=== PATIENT | male | born 1940 | race Caucasian/White ===

== ENCOUNTER 2019-04-09 00:43 | Emergency (ER) | payer MEDICARE, SELFPAY ==
[2019-04-09 00:44] VITALS: BP 166/68; PULSE 62; RESP 18; TEMP 36.9; O2SAT 96; BMI 28.3
--- NOTE | 2019-04-09 01:35 | ED.DCSUM_ITS ---
History of Present Illness Chief Complaint: Abd Pain Narrative: Patient is a 79-year-old male who presents with abdominal pain. 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 He does not have a history of spontaneous bacterial peritonitis. He has required paracentesis on one previous occasion. Tonight after eating pizza around 8 PM he developed right upper quadrant abdominal pain with radiation through to the back. He does have a history of cholelithiasis as well. He denies any fever nausea or vomiting. 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 Denies: Nausea, Vomiting Neurological: Denies: Headache Physical Exam Vital Signs/Narrative: Vital Signs Temp Pulse Resp BP Pulse Ox 04/09/19 00:44 98.4 F 62 18 166/68 H 96 General: Well nourished Head: Normocephalic Eyes: EOMI ENT: Moist mucous membranes Neck: Supple Cardiovascular: Regular rate Respiratory: No distress Abdomen: Soft, Tender, - - Right upper quadrant abdominal tenderness. Negative for: Guarding, Rebound tenderness, Camarillo's sign Skin: Normal color Neurological: Alert Psychological: Normal affect Diagnostic/Tx/Re-eval Impressions Abdomen Ultrasound 04/09/19 01:35 IMPRESSION: Mild gallbladder wall thickening. Limited evaluation of the gallbladder. Common duct and pancreas not visualized due to overlying bowel gas. Electronically Signed: Umair Hinojosa MD at 3:34 EDT , Service support , 04/09/19 01:35 Abdomen Limited [US] Stat Laboratory Results 04/09/19 04/09/19 01:45 01:45 WBC 3.4 L RBC 3.27 L Hgb 12.7 L Hct 35.8 L MCV 109.5 H MCH 38.8 H MCHC 35.5 RDW Std Deviation 58.4 H RDW Coeff of Marii 14.3 Plt Count 47 L* MPV 12.4 H Immature Gran % (Auto) 0.300 Neut % (Auto) 57.5 Lymph % (Auto) 27.5 Kingfisher % (Auto) 9.9 Eos % (Auto) 4.5 Baso % (Auto) 0.3 Absolute Neuts (auto) 1.9 L Absolute Lymphs (auto) 0.92 Nucleated RBC % 0 Diff Path Review May foll Platelet Estimate MKD DEC RBC Morphology N CHROM Macrocytosis 2+ Sodium 141 Potassium 4.1 Chloride 109 H Carbon Dioxide 26.0 Anion Gap 6 BUN 16 Creatinine 1.09 Estim Creat Clear Calc 47.80 Est GFR (MDRD) Af Amer 84 Est GFR (MDRD) Non-Af 69 BUN/Creatinine Ratio 14.7 Glucose 268 H Calcium 8.4 L Total Bilirubin 2.20 H AST 56 H ALT 45 Alkaline Phosphatase 144 H Total Protein 6.6 Albumin 2.7 L Globulin 3.9 Albumin/Globulin Ratio 0.7 L Lipase 204 - Medical Decision Making Work-up as above. Patient has mild gallbladder wall thickening but does not have any other evidence of acute cholecystitis. He has no leukocytosis, fever, nausea or vomiting. There is no pericholecystic fluid. His liver function tests are near baseline. On reevaluation his symptoms have resolved. I discussed with him the possibility of chronic cholecystitis. I recommended that he follow-up as an outpatient for further work-up such as possible HIDA scan. I discussed referring him to surgery. Patient states no offense but if I need anything else done I will follow-up with [facility]. He does have upcoming appointments with his primary care physician and physicians up at [facility]. I advised he discuss his symptoms with them and further work-up with them. He does understand to return for new or worsening symptoms and was instructed on specific signs and symptoms to return or seek immediate evaluation for. His symptoms have resolved on reevaluation and he has no complaints at this time. ED Disposition - Plan for ED Patient: Disposition: Home or Assisted Living Diagnosis: RUQ abdominal pain Instructions: ABDOMINAL PAIN, Unkown Cause, (Male) Referrals: Von Batista, [Primary Care Provider] -
--- NOTE | 2019-04-09 01:35 | US_ITS ---
STUDY: ABDOMINAL ULTRASOUND - RIGHT UPPER QUADRANT REASON FOR VISIT: Male, 79 years old. Abdominal pain. TECHNIQUE: Ultrasound evaluation of the right upper quadrant was performed with real-time and static williamson-scale imaging. TECHNICAL QUALITY: Adequate. COMPARISON: November 17, 2016 and July 02, 2015. FINDINGS: Liver: The liver measures 12.8 cm. There is a heterogeneous echogenicity of the liver. The bile ducts are within normal limits. There is hepatic color flow. The direction of portal flow is hepatopetal. There is no demonstrated mass lesion. Gallbladder: Normal distended gallbladder. The gallbladder wall measures 4 mm. There is a negative sonographic Camarillo's sign. There is no pericholecystic fluid. There are no gallstones. Limited evaluation of gallbladder due to overlying bowel gas. On images provided aside from mild gallbladder wall thickening, the gallbladder is grossly normal. Common Bile Duct (C.B.D.): Not visualized. Pancreas: Not visualized. Right Kidney: Normal size of the right kidney. The right kidney measures 10.2 cm. Normal renal cortex. The right cortex measures 1.3 cm. There is no demonstrated renal mass or cyst. There is no right hydronephrosis. US/Abdomen Limited IMPRESSION: Mild gallbladder wall thickening. Limited evaluation of the gallbladder. Common duct and pancreas not visualized due to overlying bowel gas. Electronically Signed: Umair Hinojosa MD at 3:34 EDT , Service support ,
[2019-04-09 02:01] LABS: Absolute Lymphocyte Count 0.92 X10^3/uL (0.83-4.51); Absolute Neutrophil Count 1.9 X10^3/uL (2.0-7.7); Basophil# 0.01 X10^3/uL; Basophil% 0.3 % (0-1); Eosinophil# 0.15 X10^3/uL; Eosinophils% 4.5 % (0-5); Hematocrit 35.8 % (40-54); Hemoglobin 12.7 g/dL (13.0-16.5); Lymphocyte # 0.92 X10^3/ul (4.0); Lymphocyte % 27.5 % (19-41); Mean Corp Hgb Conc 35.5 g/dL (32-36); Mean Corpuscular Hgb 38.8 pg (27.0-32.0); Mean Corpuscular Volume 109.5 fL (80-94); Mean Platelet Vol. 12.4 fl (6.2-12.0); Monocyte# 0.33 X10^3/uL; Monocyte% 9.9 % (0-10); NRBC Flagged by Analyzer 0 % (0-5); Neutrophil # 1.93 X10^3/uL (2.7-7.7); Neutrophil % 57.5 % (47-70); POSITIVE COUNT YES; RBC Distribution Width CV 14.3 % (11.6-14.6); RBC Distribution Width SD 58.4 fl (35.1-43.9); Red Blood Count 3.27 M/mm3 (4.6-6.2); White Blood Count 3.4 K/mm3 (4.4-11.0)
[2019-04-09 02:05] LABS: Platelet Count 47 K/mm3 (150-450)
[2019-04-09 02:06] LABS: Differential Indicated SCAN CRITERIA MET
--- NOTE | 2019-04-09 02:10 | ED.RN ---
DR MATHEW NOTIFIED OF PLT RESULTS
[2019-04-09 02:57] LABS: Macrocytosis 2+; Platelet Estimate MKD DEC (ADEQ)
[2019-04-09 02:58] LABS: Red Cell Morphology N CHROM NORMAL (NORM C&C)
[2019-04-09 03:03] LABS: ALB/GLOB Ratio 0.7 RATIO (0.9-2.4); AST(SGOT) 56 U/L (15-37); Alanine Aminotransfer ALT/SGPT 45 U/L (16-61); Albumin, Serum 2.7 g/dL (3.2-5.0); Alkaline Phosphatase 144 U/L (45-117); Anion Gap 6 (5-15); BUN 16 mg/dL (7-18); BUN/Creat Ratio 14.7 RATIO (10-20); Calcium,Total 8.4 mg/dL (8.5-10.1); Chloride 109 mmol/L (98-107); Creatinine, Serum 1.09 mg/dL (0.70-1.30); EST Glomerular Filtration Rate 69 mL/min (>60); Est Glom Filt Rate - Afr Amer 84 mL/min (>60); Globulin 3.9 g/dL (2.2-4.2); Glucose 268 mg/dL (74-106); Lipase 204 U/L (73-393); Potassium 4.1 mmol/L (3.5-5.1); Protein, Total 6.6 g/dL (6.4-8.2); Sodium Level 141 mmol/L (136-145)
[2019-04-09 03:39] VITALS: BP 132/69; PULSE 60; RESP 12; O2SAT 97
[2019-04-11 08:24] LABS: Pathologist Review Reviewed
== END 2019-04-09 04:06 | disposition home or self-care (01) ==
PROVIDERS: Emergency Provider Emergency Medicine; Family Provider Student in an Organized Health Care Education/Training Program; PCP Student in an Organized Health Care Education/Training Program
DX: R10.11 Right upper quadrant pain (principal); K74.60 Unspecified cirrhosis of liver; Z79.899 Other long term (current) drug therapy; Z87.891 Personal history of nicotine dependence
CPT/HCPCS: 76705; 80053; 83690; 85025; 99283; A4216

== ENCOUNTER 2019-07-09 18:05 | Emergency (ER) | payer MEDICARE, SELFPAY ==
[2019-07-09 18:05] VITALS: BP 148/68; PULSE 60; RESP 16; TEMP 36.6; O2SAT 97; BMI 29.0
--- NOTE | 2019-07-09 18:42 | CT_ITS ---
STUDY: CT CHEST WITHOUT CONTRAST REASON FOR EXAM: Male, 79 years old. TRIPPED AND FELL HIT RIGHT SIDE CHEST RADIATION DOSAGE (If Supplied By Facility): CTDIvol = ( 18.33 ) mGy, DLP = ( 719.34 ) mGycm TECHNIQUE: Transaxial imaging was performed without the administration of intravenous contrast material. Individualized dose optimization techniques were used for this CT. COMPARISON: Abdominal ultrasound dated April 09, 2019 FINDINGS: The lungs are normal. No visualized consolidation or pleural effusion or pulmonary edema. No lung nodules. Some occasional interstitial thickening is seen in both lungs. Several small calcified right hilar lymph nodes are present. Normal heart size and pericardium. Normal mediastinum. Normal hilar regions. Normal unenhanced pulmonary arteries. There is atherosclerotic calcification of the aortic arch with tortuosity and elongation of the aortic arch and descending thoracic aorta. There are multi-level degenerative changes of the thoracic spine. No visualized acute rib fractures. There are numerous chronic appearing abnormalities of the visualized upper abdomen including splenic and liver calcifications, cirrhotic appearing liver, portal vein hypertension and multiple venous varices. CT/Chest without Contrast IMPRESSION: 1. No demonstrated acute or significant process of the chest on this exam. Electronically Signed: Wei Watkins MD at 19:33 EST , Service support ,
[2019-07-09] MEDS: Lidocaine 5% Patch 1 PATCH TOPICAL (19:17)
[2019-07-09 19:18] LABS: Absolute Lymphocyte Count 0.94 X10^3/uL (0.83-4.51); Absolute Neutrophil Count 2.2 X10^3/uL (2.0-7.7); Basophil# 0.01 X10^3/uL; Basophil% 0.3 % (0-1); Eosinophil# 0.13 X10^3/uL; Eosinophils% 3.7 % (0-5); Hemoglobin 12.7 g/dL (13.0-16.5); Lymphocyte # 0.94 X10^3/ul (4.0); Lymphocyte % 26.8 % (19-41); Mean Corp Hgb Conc 35.3 g/dL (32-36); Mean Corpuscular Hgb 38.5 pg (27.0-32.0); Mean Corpuscular Volume 109.1 fL (80-94); Mean Platelet Vol. 11.1 fl (6.2-12.0); Monocyte# 0.26 X10^3/uL; Monocyte% 7.4 % (0-10); NRBC Flagged by Analyzer 0 % (0-5); Neutrophil # 2.16 X10^3/uL (2.7-7.7); Neutrophil % 61.5 % (47-70); POSITIVE COUNT YES; RBC Distribution Width SD 56.6 fl (35.1-43.9); White Blood Count 3.5 K/mm3 (4.4-11.0)
[2019-07-09 19:19] LABS: Anion Gap 6 (5-15); BUN 17 mg/dL (7-18); BUN/Creat Ratio 14.9 RATIO (10-20); Calcium,Total 8.1 mg/dL (8.5-10.1); Chloride 109 mmol/L (98-107); Creatinine, Serum 1.14 mg/dL (0.70-1.30); EST Glomerular Filtration Rate 66 mL/min (>60); Est Glom Filt Rate - Afr Amer 80 mL/min (>60); Estimated Creatinine Clearance 45.71 ml/min; Glucose 251 mg/dL (74-106); Potassium 4.2 mmol/L (3.5-5.1); Sodium Level 142 mmol/L (136-145)
[2019-07-09 19:20] LABS: Platelet Count 63 K/mm3 (150-450)
[2019-07-09 19:21] LABS: Differential Indicated SCAN CRITERIA MET
[2019-07-09 19:35] LABS: International Normalized Ratio 1.6; Prothrombin Time (Protime)PT. 18.7 SECONDS (11.7-14.9)
[2019-07-09 19:36] LABS: Partial Thromboplast Time 35.7 Seconds (24.1-36.2)
[2019-07-09 19:56] LABS: Macrocytosis 1+; Platelet Estimate MOD DEC (ADEQ)
--- NOTE | 2019-07-09 20:04 | ED.VIS.FALL ---
History of Present Illness Chief Complaint: Fall Narrative: Patient presenting for evaluation secondary to a fall. Patient suffered a mechanical fall just prior to arrival. He reports that he tripped and landed on the right side of his chest on the edge of the sidewalk on the concrete. Patient states that he has a moderate to severe amount of right anterior chest pain. He denies hitting his head or loss of consciousness. Patient states that the pain in his chest is worse with palpation movement or taking deep breath. 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 He obviously is not on any sort of anticoagulants. He is denying any other injuries at this time. 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, tonsils removed Smoking Status: Former smoker - Family History Maternal Family History: Reports: No pertinent history Paternal Family History: Reports: No pertinent history Review of Systems All systems negative except as indicated General: Denies: Chills, Fever, Sweats Eyes: Denies: Visual changes - bilaterally, Diplopia ENT: Denies: Rhinorrhea, Sore throat Cardiovascular: Reports: Chest pain Respiratory: Denies: Dyspnea, Cough, Dyspnea on exertion Gastrointestinal: Denies: Abdominal pain, Nausea, Vomiting, Diarrhea, Melena, Hematochezia Genitourinary: Denies: Dysuria, Hematuria, Frequency Musculoskeletal: Denies: Back pain, Extremity Pain Skin: Denies: Rash, Wounds Neurological: Denies: Headache, Weakness, Numbness Psych: Denies: Anxiety Endocrine: Denies: Polyuria, Polydipsia Hematologic: Reports: Easy bruising, Easy bleeding Physical Exam Vital Signs/Narrative: Vital Signs Temp Pulse Resp BP Pulse Ox 07/09/19 18:05 98 F 60 16 148/68 H 97 Inital Vital Signs reviewed: Yes General: Well nourished, Well developed, - - Airway is patent, breath sounds equal bilateral, central peripheral pulses 2+ and symmetric. GCS 15 out of 15 Head: Normocephalic, Atraumatic Eyes: Perrl, EOMI ENT: No trauma Neck: Nontender, Full ROM. Negative for: Spinal Tenderness Cardiovascular: Regular rate, Regular rhythm, No murmurs Respiratory: No distress, CTA bilaterally, Chest tenderness - Right anterior just below the nipple line with a minimal amount of ecchymosis. No evidence of flail chest, step-offs, or subcutaneous emphysema. Abdomen: Soft, Nontender, Nondistended, Normal bowel sounds Back: Nontender Extremeties: Atraumatic Skin: Normal color, No rash Neurological: Alert, Oriented x3, Cranial nerves II-XII grossly intact, Normal Strength, Normal Sensation Psychological: Normal affect Diagnostic/Tx/Re-eval - Medical Decision Making Patient presented secondary to a fall with a history of thrombocytopenia. Patient's CBC demonstrates a platelet count of 63,000. Due to the patient's high risk for bleeding, CT was performed. This shows no evidence of acute bleeding, no rib fractures, no pneumothorax, no acute pathology per radiology. Lidocaine patch was placed over top of the patient's injury and he did have some symptomatic improvement. Patient will be discharged with a incentive spirometer and lidocaine patches. He understands signs and symptoms which to return. Disposition: Home ED Disposition - Plan for ED Patient: Disposition: Home or Assisted Living Diagnosis: Rib contusion, Thrombocytopenia Instructions: Rib Contusion, Thrombocytopenia Prescriptions: Lidocaine [Lidoderm Patch] 1 patch TOPICAL DAILY #10 patch Prescription Printed Referrals: Von Batista DO [Primary Care Provider] - 1 Week
[2019-07-09 20:16] VITALS: O2SAT 97
[2019-07-10 14:36] LABS: Pathologist Review Reviewed
--- NOTE | 2019-07-12 10:09 | ED.RN ---
Verified stregnth of lidocaine patch with dr Winchester at 5mg.
== END 2019-07-09 20:26 | disposition home or self-care (01) ==
PROVIDERS: Emergency Provider Emergency Medicine; Family Provider Student in an Organized Health Care Education/Training Program; PCP Student in an Organized Health Care Education/Training Program
DX: S20.211A Contusion of right front wall of thorax, initial encounter (principal); W01.0XXA Fall on same level from slipping, tripping and stumbling without subsequent striking against object, initial encounter; Y93.9 Activity, unspecified; K74.60 Unspecified cirrhosis of liver; D69.59 Other secondary thrombocytopenia; Z79.899 Other long term (current) drug therapy; Z87.891 Personal history of nicotine dependence
CPT/HCPCS: 71250; 80048; 85025; 85610; 85730; 99251; 99283; A4216; G0463